=== PATIENT | male | born 1945 | race Caucasian/White ===

== ENCOUNTER → 2019-02-18 | Outpatient (CLI) | payer MEDICARE, OTHER ==
[~2019-02-18] MED LIST: ACET500C PO; AMLO25TA PO; ASPI81TA85 PO; CIPR-249 PO; COLA100C5 PO; ELIQ5TAB PO; FERR325T3 PO; FLOM0.4C39 PO; ISOVUE-370 76% 100ML VIAL (Q9967) As Ordered ONE; KEFL500C17 PO; LISI10TA4 PO; NORC1TAB5 PO; PERC5TAB12 PO; PYRI1TAB5 PO; TRIA0.022 TOP; VITA200038 PO
--- NOTE | 2019-02-18 13:20 | REP ---
CT of the chest with IV contrast: There are no infiltrates. There are no pleural effusions. There is a 4 mm left lower lobe pleural-based lung nodule on image 61. There is a 6 mm left lower lobe lung nodule on image 69. There is a 6 ml left lower lobe lung nodule on image 85. There is a 6 mm left lower lobe lung nodule on image 95. No other lung nodules or masses are identified. There is no mediastinal, hilar or axillary lymph node enlargement. Suspect there is a single tiny embolus in a right upper lobe pulmonary artery on image 41. No other pulmonary emboli are identified. The thoracic aorta is unremarkable. Cardiac size is normal. There is no pericardial effusion. There is calcified vascular atheroma in the coronary arteries. Upper abdomen: There is a mass involving the body and tail of the pancreas. There are calcifications within this mass in the tail of the pancreas. There is no peripancreatic phlegmon or pseudocyst. There are multiple low density lesions throughout both lobes of the liver compatible with multiple hepatic metastases. Impression: Pancreatic mass as described. Multiple hepatic metastases. No pleural effusions. There are several left lower lobe lung nodules as described. Probable tiny embolus in a single right upper lobe pulmonary artery on image 41. No mediastinal, hilar or axillary lymph node enlargement. Electronically Signed by Shay Awad MD 02/18/2019 01:12 P
== END ==
LOC: M RAD 11:39
PROVIDERS: ATTEND Internal Medicine Medical Oncology
DX: R91.8 Other nonspecific abnormal finding of lung field (principal); I26.99 Other pulmonary embolism without acute cor pulmonale; K86.89 Other specified diseases of pancreas; K76.9 Liver disease, unspecified; C78.7 Secondary malignant neoplasm of liver and intrahepatic bile duct
CPT/HCPCS: 36415; 71260; 80053; 82378; 85027; 85610; 85730; 86301; G0463; Q9967